=== PATIENT | female | born 1950 | race Caucasian/White ===

== ENCOUNTER 2021-10-21 14:31 | Emergency (ER) | payer MEDICARE, SELFPAY ==
--- NOTE | ~2021-10-21 | XR_ITS ---
EXAMINATION: XR hip LT min 2V DATE: 10/21/2021 15:11 INDICATION: Left hip pain. TECHNIQUE: 3 views of left hip were obtained. COMPARISON: None. FINDINGS: Bone alignment is normal. No fracture. There is mild lumbar spondylosis. Left hip joint spa ce is normal. IMPRESSION: 1. Normal left hip. Reviewed, dictated and finalized at location A. IMPRESSION: 1. Normal left hip.
[2021-10-21 14:45] VITALS: BP 157/84; PULSE 79; RESP 18; TEMP 36.6; O2SAT 98
--- NOTE | 2021-10-21 14:58 | ED.GENADULT ---
HPI - General Adult General Chief complaint: Extremity Problem,Nontraumatic Stated complaint: hip pain Time Seen by Provider: 10/21/21 14:50 Source: patient Mode of arrival: ambulatory Limitations: no limitations History of Present Illness HPI narrative: Ms. Villagomez is a 70-year-old female patient presenting to the clinic today with complaints of left hip pain x1 week. 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 She denies any injury or fall to the left hip. Reports that pain is improved with sitting and laying flat however pain is worse with standing and ambulating. Has pain to the posterior left hip that is also into the lateral left hip. Denies any pain currently in the groin. Does report some shooting sharp pain going down her left leg today however that is new. She denies any loss of bowel or bladder. She denies any saddle anesthesia Related Data Home Medications Medication Instructions Recorded Confirmed Lacto.acidophilus-Bif.animalis cap PO 10/21/21 [Daily Probiotic] Vitamin D3 10/21/21 [id number]-doi-iqvow-menth-euc ml TOPICAL 10/21/21 levothyroxine 75 mcg PO DAILY 10/21/21 10/21/21 omega-3 fatty acids [Fish Oil] 500 mg PO DAILY 10/21/21 10/21/21 Allergies Allergy/AdvReac Type Severity Reaction Status Date / Time No Known Allergies Allergy Verified 10/21/21 14:53 Review of Systems Review of Systems: Pertinent positives per HPI. Patient denies any fever, chills, rash, headache, visual changes, dizziness, cough, runny nose, sore throat, shortness of breath, chest pain, palpitations, nausea, vomiting, diarrhea, constipation, abdominal pain, or any urinary issues. PMFSH Comments At the time of my signature, I reviewed and agree with the nursing past medical, surgical, social, and family history. There is no relevant family history pertinent to the patient complaint. Exam Narrative: General: Well-developed, well nourished, in no apparent distress Head: Normocephalic, atraumatic. Cardio: Regular rate and rhythm, s1 and s2 normal, no murmur appreciated. Resp: Clear to auscultation bilaterally, no rhonchi, rales, wheezing or rubs. Musculoskeletal: No deformity, tender to palpation to the posterior and lateral upper hip sharp pain radiating down leg, grossly normal range of motion, pain worse with standing and ambulation, muscle strength strong and equal, peripheral pulse strong, no edema, no cyanosis, normal gait and station Course Course Emergency Course: Portions of this record may have been created with voice recognition software. Level of Care: Express Care Visit Vital Signs Vital signs: Vital Signs Temperature 36.6 C 10/21/21 14:45 Pulse Rate 79 10/21/21 14:45 Respiratory Rate 18 10/21/21 14:45 Blood Pressure 157/84 H 10/21/21 14:45 Pulse Oximetry 98 10/21/21 14:45 Temperature 36.6 C 10/21/21 14:45 Pulse Rate 79 10/21/21 14:45 Respiratory Rate 18 10/21/21 14:45 Blood Pressure 157/84 H 10/21/21 14:45 Pulse Oximetry 98 10/21/21 14:45 Vital signs reviewed Medical Decision Making MDM Narrative Medical decision making narrative: At the time of visit patient is standing up in the exam room. X-ray negative for any fracture or malalignment of the left hip. I suspect the patient might have sciatica versus arthritis to the left hip. I will give her a prescription for some prednisone and have her follow-up with her PCP for further evaluation of symptoms persist. Patient patient voiced understanding of discharge instructions and she agreed with treatment plan. Differential Diagnosis Differential Diagnosis: Stress fracture, arthritis, or sciatica Vital Signs Vital Signs: Vital Signs Temperature 36.6 C 10/21/21 14:45 Pulse Rate 79 10/21/21 14:45 Respiratory Rate 18 10/21/21 14:45 Blood Pressure 157/84 H 10/21/21 14:45 Pulse Oximetry 98 10/21/21 14:45 Temperature 36.6 C 10/21
== END 2021-10-21 15:26 | disposition home or self-care (01) ==
PROVIDERS: Emergency Provider Nurse Practitioner Family
DX: M25.552 Pain in left hip (principal); E03.9 Hypothyroidism, unspecified
CPT/HCPCS: 73502; 99203; G0463